=== PATIENT | male | born 2000 | race Hispanic/Latino ===

== ENCOUNTER 2022-09-22 22:38 | Emergency (ER) | payer SELFPAY ==
--- NOTE | ~2022-09-22 | CT_ITS ---
Non-contrast CT scan of the Abdomen and Pelvis Clinical indication: Right flank pain Technique: 5 mm axial scans were obtained through the abdomen and pelvis without intravenous or oral contrast. Dose reduction technique was used on this scan by utilizing automated exposure control and iterative reconstruction technique. The dose-length product (DLP) was 493.80 mGy-cm. Findings: Images through the lung bases reveal no abnormalities. There is no evidence of renal or ureteral calculi. The kidneys and the ureters are nondilated. There is diffuse fatty infiltration of the liver. The spleen, pancreas, gallbladder, and adrenals sofya ear normal. There is no aortic aneurysm. There is no evidence of bowel obstruction. Normal appendix. Images through the pelvis were performed. There is no evidence of ascites or lymphadenopathy. Urinary bladder unremarkable. Prostate gland and seminal vesicles are unremarkable. Impression: Diffuse fatty infiltration of liver. No other significant findings. Reviewed, dictated and finalized at [facility]. ERVATION COORDINATOR Impression: Diffuse fatty infiltration of liver. No other significant findings.
--- NOTE | ~2022-09-22 | US_ITS ---
Testicular ultrasound with doppler. Indication: Left testicular pain. Technique: Real-time sonography the scrotum was performed. Color flow Doppler and Doppler spectral an alysis were performed. Findings: The testes are homogeneous in echotexture bilaterally. There is no evidence of an intrates ticular mass. The right testis measures 4.3 x 2.3 x 2.6 cm and the left 3.5 x 2.0 x 2.5 cm. There is color-flow seen to both testes. Arterial and venous spectral waveforms are seen in both testes. There is no sonographic evidence of torsion. 3 mm right epididymal head cyst or spermatocele noted. Left e pididymis unremarkable. Impression: No significant abnormality seen. 3 mm right epididymal head cyst or spermatocele is of no clinical significance. Reviewed, dictated and finalized at [facility]. RINTENDENT TRACK Impression: No significant abnormality seen. 3 mm right epididymal head cyst or spermatocele is of no clinical significance.
[2022-09-22 22:47] VITALS: BP 143/90; PULSE 88; RESP 17; TEMP 36.7; O2SAT 97
[2022-09-23 00:05] VITALS: BP 143/90; PULSE 81; RESP 20; TEMP 36.9; O2SAT 98
--- NOTE | 2022-09-23 00:16 | PC.NURSE ---
Focused assessment completed using tile mechanic. Pt reports pain in his back that radiates through to his abdomen and into his left testicle that started 4 days ago. He had same symptoms a few years ago and was diagnosed with kidney infection. He reports burning with urination and his urine is very dark. +Nausea. Denies vomiting or diarrhea. Denies swelling or discoloration to testicle. Pain rated 8/10. He has been taking OTC pain medication with minimal relief.
[2022-09-23 00:20] LABS: Basophils Percent Auto 0.2 % (0.2-1.2); Eosinophils Percent Auto 0.2 % (0-4.4); Hematocrit 41.6 % (42.0-52.0); Immature Granulocyte Absolute 0.03 K/mm3 (0.00-0.031); Immature Granulocyte Percent A 0.3 % (0-0.5); Lymphocytes Absolute Auto 2.12 K/mm3 (0.9-3.2); Lymphocytes Percent Auto 23.8 % (18.3-44.2); Mean Corpuscular HGB Conc 36.1 g/dl (32-36); Mean Corpuscular Hemoglobin 32.6 pg (26-34); Mean Corpuscular Volume 90.4 fl (80-100); Mean Platelet Volume 9.8 fl (7.4-10.4); Monocytes Absolute Auto 0.6 K/mm3 (0.1-0.6); Monocytes Percent Auto 6.8 % (2.6-8.5); Neutrophils Absolute Auto 6.1 K/mm3 (1.3-6.7); Neutrophils Percent Auto 68.7 % (45.5-73.1); Platelet Count Result 340 k/mm3 (150-375); Red Cell Distribution Width 12.2 % (11.5-14.5); White Blood Count 8.9 K/mm3 (4.5-10.0)
[2022-09-23 00:30] LABS: Alanine Aminotransferase 49 U/L (6-50); Albumin Level 4.5 g/dL (3.5-5.1); Alkaline Phosphatase 93 U/L (38-126); Anion Gap 8 mmol/L (8-16); Aspartate Amino Transferase 26 U/L (17-59); Blood Urea Nitrogen 11 mg/dL (9-20); Carbon Dioxide 29 mmol/L (22-30); Chloride 102 mmol/L (98-107); Estimated Glomerular Filt Rate > 60; Glucose 100 mg/dL (65-110); Lipase 104 U/L (23-300); Potassium 3.6 mmol/L (3.4-5.0); Sodium 139 mmol/L (137-145)
--- NOTE | 2022-09-23 00:33 | ED.ABDPAIN ---
HPI - Abdominal Pain General Chief Complaint: Abdominal Pain Stated Complaint: ABD pain Time Seen by Provider: 09/23/22 00:14 Source: patient and RN notes reviewed Mode of arrival: ambulatory Limitations: language barrier (portuguese speaking, [employer] police patrol officer utilized) History of Present Illness HPI narrative: This is a 21 year old male who presents for evaluation of right flank pain and right lower abdominal pain. He states he has had pain for 4 days. He has been taking tylenol for his pain , and it usually relieves his pain. His pain did not improve with tylenol today so he came to ER. He reports mostly right lower abdominal pain that radiates to his lower back . He also reports intermittent testicular pain. He denies testicular pain currently. He denies scrotal swelling or discoloration. He also reports pain with urination but he denies hematuria. He states he has similar symptoms 2 years ago, and he was diagnosed with kidney infection that time. He rates his pain 8/10 currently. Testicular US was ordered for patient in triage by Physician's melter assistant. Related Data Allergies Allergy/AdvReac Type Severity Reaction Status Date / Time No Known Allergies Allergy Verified 09/23/22 00:20 Review of Systems Review of Systems: All systems reviewed & are unremarkable except as noted in HPI and below Constitutional: Constitutional: Denies weakness Cardiovascular: Cardiovascular: Denies syncope, Denies rapid heart rate, Denies irregular heart rhythm, Denies leg edema and Denies dyspnea Respiratory: Respiratory: Denies chest congestion, Denies hemoptysis, Denies excessive phlegm production and Denies dyspnea Gastrointestinal: Gastrointestinal: Reports abdominal pain, Denies hematochezia, Denies diarrhea, Reports nausea and Denies vomiting Genitourinary: Genitourinary: Denies hematuria, Reports dysuria, Denies penile discharge and Reports testicular pain Musculoskeletal: Musculoskeletal: Reports back pain, Denies joint swelling, Denies loss of height and Denies muscle weakness Neurologic: Denies syncope, Denies focal weakness and Denies weakness PMFSH Past Medical History Medical History (Updated 09/23/22 @ 04:27 by Mercedez Lawrence MD) No significant medical problems Surgical History Surgical History (Updated 09/23/22 @ 00:38 by Mercedez Lawrence MD) No history of previous surgery Social History Social History (Updated 09/23/22 @ 00:38 by Mercedez Lawrence MD) Smoking status: Never smoker Exam Const: General: no acute distress and alert Orientation/consciousness: patient oriented x3 Limitations: no limitations HENMT: Head: normal to inspection Eyes: Conjunctivae: conjunctivae normal EOM: EOMs intact bilaterally Neck: Neck: normal visual inspection Chest: Chest palpation & inspection: normal inspection of the chest Resp: Effort & Inspection: normal respiratory effort Auscultation: clear to auscultation bilaterally Cardio: Rate: regular rate Rhythm: regular rhythm Heart sounds: no murmurs GI: GI Palp: Yes Soft to palpation, Yes Tenderness to palpation present (GI) (RLQ), No Guarding due to palpation present (GI), No Rigid due to palpation and No Hernia present Auscultation: normal bowel sounds : Male General Exam: Yes normal external exam Penis: Yes uncircumcised Scrotum: scrotum normal Testes: Testes normal Skin: General skin exam: normal color Rashes: no rashes Wounds: no wounds Neuro: General: patient oriented x3, moves all extremities and CN's II-XI intact bilaterally Cranial nerves: Yes Nystagmus not present Extrem: General: normal to inspection Psych: Mental Status: mental status grossly normal Affect: normal affect Attitude: cooperative Course Reevaluation(s) Reevaluation #1: PAtient states he feels better and he denies any abdominal pain, nausea or vomiting. Date: 09/23/22 Time: 03:00 Reevaluation #2: PAtient able to eat and drink without nausea or vomiting. I
[2022-09-23] MEDS: SODIUM CHLORIDE 0.9% IV 1,000 ML 999 ML IV CONT (00:57)
[2022-09-23] MEDS: ONDANSETRON INJ 4 MG/2 ML VIAL IV PUSH (00:58)
[2022-09-23] MEDS: MORPHINE SULFATE (*CRX) 4 MG/ML INJ IV PUSH (00:58)
[2022-09-23 01:06] LABS: Appearance Urine Clear (Clear); Bilirubin Urine Negative (Negative); Blood Urine Trace-lysed (Negative); Color Urine Yellow (Yellow); Glucose Urine UA Negative (Negative); Ketones Urine Negative (Negative); Leukocyte Esterase Ur Trace LEU/UL (Negative); Nitrate Urine Negative (Negative); Protein Urine Negative (Negative); Urobilinogen Urine 0.2 mg/dL (<2.0)
[2022-09-23 01:12] LABS: Bacteria Urine Trace /hpf; Mucus Urine Rare /lpf; RBC Urine 0-2 /hpf (0-2)
[2022-09-23 01:13] LABS: Add Urine Microscopic? YES
[2022-09-23 01:40] VITALS: BP 134/86; PULSE 73; RESP 16; O2SAT 100
[2022-09-23 02:56] VITALS: BP 118/69; PULSE 71; RESP 16; O2SAT 100
--- NOTE | 2022-09-23 04:19 | PC.NURSE ---
Pt tolerated PO challenge without any nausea or vomiting. He does report mild RLQ pain. Dr. Lawrence aware.
[2022-09-23 04:43] VITALS: BP 130/80; PULSE 80; RESP 16; O2SAT 98
== END 2022-09-23 04:44 | disposition home or self-care (01) ==
PROVIDERS: Emergency Provider General Practice; PCP Emergency Medicine
DX: K56.7 Ileus, unspecified (principal); R10.9 Unspecified abdominal pain
CPT/HCPCS: 36415; 74176; 76870; 80053; 81001; 83690; 85025; 93976; 96361; 96374; 96375; 99284; J2270; J2405; J7030